=== PATIENT | female | born 1960 | race Caucasian/White ===

== ENCOUNTER 2017-02-07 13:07 | Emergency (ER) | payer OTHER ==
[~2017-02-07] VITALS: Ht 160 cm; Wt 100.5 kg
[~2017-02-07 13:07] MED LIST: ASPI-556 PO; LEVO750T21 PO; NOCURR; [UNRECOGNIZED DRUG - CODE] PO
[2017-02-07 13:10] VITALS: BP 131/86
== END 2017-02-07 16:12 | disposition home or self-care (01) ==
LOC: EMS 13:09
DX: M79.672 Pain in left foot (principal)
CPT/HCPCS: 99281